=== PATIENT | female | born 1975 | race Caucasian/White ===

== ENCOUNTER 2019-07-27 11:25 | Emergency (ER) | payer SELFPAY ==
[~2019-07-27] VITALS: Ht 167.6 cm; Wt 65.9 kg
[2019-07-27 12:21] LABS: HEMATOCRIT 38.2 % (37.0-47.0); HEMOGLOBIN 12.6 g/dL (12.5-16.0); MEAN CELL VOLUME 82 fl (78-100); MEAN CORPUSCULAR HEMOGLOBIN 27 pg (27-31); MEAN CORPUSCULAR HGB CONC 33 g/dL (33-37); MEAN PLATELET VOLUME 10.2 fl (7.4-10.4); PLATELET COUNT 251 K/mm3 (130-400); RED BLOOD COUNT 4.66 M/mm3 (4.10-5.30); RED CELL DISTRIBUTION WIDTH 14.6 % (11.5-14.5); WHITE BLOOD COUNT 10.2 K/mm3 (4.8-10.8)
[2019-07-27 12:31] LABS: URINE APPEARANCE CLEAR; URINE BILIRUBIN NEGATIVE (NEGATIVE); URINE BLOOD 250 ery/uL (NEGATIVE); URINE COLOR YELLOW; URINE GLUCOSE NEGATIVE (NEGATIVE); URINE KETONE NEGATIVE (NEGATIVE); URINE LEUKOCYTE ESTERASE NEGATIVE (NEGATIVE); URINE NITRATE NEGATIVE (NEGATIVE); URINE PROTEIN(semi-quant) NEGATIVE (NEGATIVE); URINE UROBILINOGEN NORMAL (NORMAL); URINE WBC 0-1 /hpf (0-3)
[2019-07-27 12:32] LABS: URINE MUCUS PRESENT (NOT PRESENT)
[2019-07-27 12:38] LABS: ALBUMIN 4.2 g/dL (3.5-5.0); LYMPHOCYTE 11 % (20-51); MONOCYTE 5 % (3-10); NEUTROPHILS 83 % (42-75)
[2019-07-27 12:39] LABS: POTASSIUM 4.1 mmol/L (3.5-5.1)
[2019-07-27 12:40] LABS: CALCIUM 9.2 mg/dL (8.3-10.5)
[2019-07-27 12:43] LABS: TOTAL BILIRUBIN 0.4 mg/dL (0.2-1.2)
[2019-07-27] MEDS ORDERED: PERCOCET 325 MG1 TA2 PO (14:09)
[2019-07-27] MEDS ORDERED: ONDANSETRON ODT8 MG PO (14:09)
[2019-07-27 14:20] VITALS: BP 113/70
== END 2019-07-27 14:16 | disposition home or self-care (01) ==
LOC: ED 11:25
PROVIDERS: Nurse Practitioner Primary Care
DX: R10.31 Right lower quadrant pain (principal); R11.0 Nausea; Z98.890 Other specified postprocedural states
CPT/HCPCS: Q9967

== ENCOUNTER → 2019-08-01 | Outpatient (CLI) | payer SELFPAY ==
[2019-07-27 14:20] VITALS: BP 113/70
[~2019-08-01] MED LIST: ONDANSETRON ODT8 MG PO; PERCOCET 325 MG1 TA2 PO
[2019-08-01 14:24] LABS: EOS # 0.1 (0.04-0.40); EOS % 0.6 % (1.0-5.0); HEMATOCRIT 40.3 % (37.0-47.0); HEMOGLOBIN 13.2 g/dL (12.5-16.0); LYMPH# 1.4 (1.50-4.00); MEAN CELL VOLUME 83 fl (78-100); MEAN CORPUSCULAR HEMOGLOBIN 27 pg (27-31); MEAN CORPUSCULAR HGB CONC 33 g/dL (33-37); MEAN PLATELET VOLUME 9.7 fl (7.4-10.4); MONO # 0.5 (0.20-0.80); NEU # 6.2 (1.40-6.50); PLATELET COUNT 294 K/mm3 (130-400); RED BLOOD COUNT 4.85 M/mm3 (4.10-5.30); RED CELL DISTRIBUTION WIDTH 14.6 % (11.5-14.5); WHITE BLOOD COUNT 8.2 K/mm3 (4.8-10.8)
[2019-08-01 14:36] LABS: POTASSIUM 4.3 mmol/L (3.5-5.1)
[2019-08-01 14:37] LABS: ALBUMIN 4.4 g/dL (3.5-5.0)
[2019-08-01 14:38] LABS: CALCIUM 9.3 mg/dL (8.3-10.5)
[2019-08-01 14:39] LABS: TOTAL PROTEIN 7.4 g/dL (6.4-8.3)
[2019-08-01 14:41] LABS: TOTAL BILIRUBIN 0.3 mg/dL (0.2-1.2)
== END ==
LOC: LAB 14:09
PROVIDERS: Family Medicine
DX: Z00.00 Encounter for general adult medical examination without abnormal findings (principal); Z13.220 Encounter for screening for lipoid disorders